=== PATIENT | male | born 2000 | race Caucasian/White ===

== ENCOUNTER 2022-09-10 23:34 | Inpatient (IN) | payer OTHER, SELFPAY ==
[2022-09-11] MEDS ORDERED: Ondansetron PF 4 MG/2 ML Vial IVP PRN (00:21)
[2022-09-11] MEDS ORDERED: Morphine 2 MG/ML VIAL SLOW IVP PRN (00:21)
[2022-09-11] MEDS ORDERED: traMADol HCl 50 MG TAB PO PRN (00:24)
[2022-09-11 00:54] LABS: Mean Corpuscular HGB CONC 32.5 g/dL (32.0-36.0); Mean Corpuscular Volume 95.5 fL (78.0-98.0); Mean Platelet Volume 8.5 fL (7.4-10.4); Platelet Count 222 thou/uL (130-400); RBC Distribution Width 11.3 % (11.5-14.5); Red Blood Cell (RBC) Count 4.84 mill/uL (4.00-5.20); White Blood Cell (WBC) Count 23.8 thou/uL (4.8-10.8)
[2022-09-11] MEDS ORDERED: Lidocaine 1% PF 5 ML VIAL ONE (00:56)
[2022-09-11] MEDS ORDERED: TETANUS, DIPHTHERIA TOX,ADULT (TDVAX) 0.5 ML VIAL IM ONE (01:00)
[2022-09-11 01:16] LABS: Anion Gap 16 mmol/L (10-20); BUN (Urea Nitrogen) 15 mg/dL (8.9-20.6); Calc. Creatinine Clearance 0 mL/min (70-130); Carbon Dioxide 20 mmol/L (22-29); Chloride 109 mmol/L (98-107); Potassium 4.3 mmol/L (3.5-5.1); Sodium 141 mmol/L (136-145)
[2022-09-11 01:17] LABS: ALT (SGPT) 20 U/L (8-55); AST (SGOT) 20 U/L (5-34); Albumin 4.4 g/dL (3.5-5.0); Alkaline Phosphatase 80 U/L (50-130); Bilirubin, Total 0.3 mg/dL (0.2-1.2); Calcium 9.1 mg/dL (7.8-10.44); Estimated GFR 87; Globulin 2.7 g/dL (2.4-3.5); Glucose 108 mg/dL (70-105); Protein, Total 7.1 g/dL (6.0-8.3)
[2022-09-11 01:36] LABS: Band 4 % (5-11); Eosinophils 1 % (0-10); Lymphocytes 5 % (28-48); MDiff Complete? YES; Monocytes 9 % (0-4); Myelocyte 1 % (0-0); Neutrophil 80 % (31-61)
[2022-09-11] MEDS ORDERED: Ondansetron PF 4 MG/2 ML Vial ONE (02:14)
[2022-09-11] MEDS ORDERED: Morphine 4 MG/ML VIAL ONE (02:14)
[2022-09-11] MEDS: Ibuprofen 600 MG TAB PO PRN ×2 (04:00→20:36)
[2022-09-11 04:22] VITALS: BMI 21.4
[2022-09-11] MEDS: Acetaminophen 500 MG TAB PO SCH ×3 (05:44→18:11)
[2022-09-11] MEDS: traMADol HCl 50 MG TAB PO SCH ×3 (05:45→18:15)
[2022-09-11 06:17] LABS: SARS-CoV-2 NAA Rapid Test Not Detected (NotDetected)
[2022-09-11 06:38] LABS: #Lymphocytes 1.1 thou/uL (1.20-3.40); #Monocytes 1.1 thou/uL (0.11-0.59); #Neutrophils 14.4 thou/uL (1.40-6.50); %Basophils 0.1 % (0.0-1.0); %Eosinophils 0.3 % (0.0-10.0); %Lymphocytes 6.4 % (28.0-48.0); %Monocytes 6.4 % (0.0-4.0); %Neutrophils 86.7 % (31.0-61.0); Hemoglobin 14.1 g/dL (14.0-18.0); Mean Corpuscular HGB CONC 32.6 g/dL (32.0-36.0); Mean Corpuscular Volume 95.2 fL (78.0-98.0); Mean Platelet Volume 8.8 fL (7.4-10.4); Platelet Count 235 thou/uL (130-400); RBC Distribution Width 11.2 % (11.5-14.5); Red Blood Cell (RBC) Count 4.55 mill/uL (4.00-5.20); White Blood Cell (WBC) Count 16.6 thou/uL (4.8-10.8)
[2022-09-11 06:58] LABS: Anion Gap 13 mmol/L (10-20); BUN (Urea Nitrogen) 12 mg/dL (8.9-20.6); Calc. Creatinine Clearance 109 mL/min (70-130); Calcium 9.1 mg/dL (7.8-10.44); Carbon Dioxide 24 mmol/L (22-29); Chloride 106 mmol/L (98-107); Estimated GFR 102; Glucose 109 mg/dL (70-105); Magnesium 1.9 mg/dL (1.7-2.2); Phosphorus 4.6 mg/dL (2.3-4.7); Potassium 4.6 mmol/L (3.5-5.1); Sodium 138 mmol/L (136-145)
[2022-09-11] MEDS: Famotidine/PF 20 mg/2ml Vial SLOW IVP SCH ×2 (09:15→20:34)
[2022-09-11] MEDS: Senokot S 8.6-50 MG TAB PO SCH ×2 (09:16→20:35)
[2022-09-11] MEDS: Polyethylene Glycol 3350 17 GM Packet PO SCH (09:16)
[2022-09-12] MEDS: Acetaminophen 500 MG TAB PO SCH ×5 (00:01→23:01)
[2022-09-12] MEDS: traMADol HCl 50 MG TAB PO SCH ×5 (00:22→23:01)
[2022-09-12] MEDS: Enoxaparin Sodium 40 MG/0.4 ML SYRINGE SC SCH (09:50)
[2022-09-12] MEDS: Senokot S 8.6-50 MG TAB PO SCH ×2 (10:24→20:12)
[2022-09-12] MEDS: Polyethylene Glycol 3350 17 GM Packet PO SCH (10:24)
[2022-09-13] MEDS: traMADol HCl 50 MG TAB PO SCH ×4 (05:16→23:30)
[2022-09-13] MEDS: Acetaminophen 500 MG TAB PO SCH ×4 (05:16→23:30)
[2022-09-13] MEDS: Enoxaparin Sodium 40 MG/0.4 ML SYRINGE SC SCH (08:57)
[2022-09-13] MEDS: Polyethylene Glycol 3350 17 GM Packet PO SCH (08:57)
[2022-09-13] MEDS: Senokot S 8.6-50 MG TAB PO SCH ×2 (08:57→20:03)
[2022-09-14] MEDS: Acetaminophen 500 MG TAB PO SCH ×4 (05:44→23:49)
[2022-09-14] MEDS: traMADol HCl 50 MG TAB PO SCH ×4 (05:44→23:49)
[2022-09-14 06:14] LABS: #Eosinphils 0.3 thou/uL (0.0-0.7); #Lymphocytes 1.6 thou/uL (1.20-3.40); #Monocytes 0.9 thou/uL (0.11-0.59); #Neutrophils 6.4 thou/uL (1.40-6.50); %Basophils 0.4 % (0.0-1.0); %Eosinophils 3.7 % (0.0-10.0); %Lymphocytes 17.4 % (28.0-48.0); %Monocytes 9.2 % (0.0-4.0); %Neutrophils 69.4 % (31.0-61.0); Hemoglobin 15.2 g/dL (14.0-18.0); Mean Corpuscular HGB CONC 32.2 g/dL (32.0-36.0); Mean Corpuscular Hemoglobin 30.8 pg (25.0-35.0); Mean Corpuscular Volume 95.7 fL (78.0-98.0); Mean Platelet Volume 7.9 fL (7.4-10.4); Platelet Count 255 thou/uL (130-400); RBC Distribution Width 11.4 % (11.5-14.5); Red Blood Cell (RBC) Count 4.95 mill/uL (4.00-5.20); White Blood Cell (WBC) Count 9.3 thou/uL (4.8-10.8)
[2022-09-14] MEDS ORDERED: FLU VACC QS2022-23(6MOS UP)/PF 60 MCG/0.5 ML SYRINGE IM ONE (09:00)
[2022-09-14] MEDS: Enoxaparin Sodium 40 MG/0.4 ML SYRINGE SC SCH (09:43)
[2022-09-14] MEDS: Polyethylene Glycol 3350 17 GM Packet PO SCH (09:43)
[2022-09-14] MEDS: Senokot S 8.6-50 MG TAB PO SCH ×2 (09:43→20:20)
[2022-09-15] MEDS: Acetaminophen 500 MG TAB PO SCH ×2 (05:50→12:18)
[2022-09-15] MEDS: traMADol HCl 50 MG TAB PO SCH ×2 (05:50→12:18)
[2022-09-15] MEDS: Enoxaparin Sodium 40 MG/0.4 ML SYRINGE SC SCH (10:19)
[2022-09-15] MEDS: Polyethylene Glycol 3350 17 GM Packet PO SCH (10:19)
[2022-09-15] MEDS: Senokot S 8.6-50 MG TAB PO SCH ×2 (10:19→19:34)
[2022-09-15] MEDS ORDERED: Midazolam HCl 2 mg/2 ml Vial ONE (13:19)
[2022-09-15] MEDS ORDERED: fentaNYL Citrate/PF 100 MCG/2 ML SYRINGE ONE (13:19)
[2022-09-15] MEDS ORDERED: Bupivacaine 0.25% HCL 30 ML VIAL ONE (13:28)
[2022-09-15] MEDS ORDERED: Sodium Chloride 0.9% 100 ML ONE (13:48)
[2022-09-15] MEDS ORDERED: CEFAZOLIN 2 GM VIAL ONE (13:48)
[2022-09-15] MEDS ORDERED: PROPOFOL 200 MG/20 ML VIAL ONE (14:02)
[2022-09-15] MEDS ORDERED: Ondansetron PF 4 MG/2 ML Vial ONE (14:02)
[2022-09-15] MEDS ORDERED: Ketorolac Tromethamine 30 MG/ML VIAL ONE (14:02)
[2022-09-15] MEDS ORDERED: NEOSTIGMINE 3 MG/3 ML SYR 3 MG/3 ML SYRINGE ONE (14:02)
[2022-09-15] MEDS ORDERED: Rocuronium Bromide 10 MG/ML (10ML VIAL) ONE (14:02)
[2022-09-15] MEDS ORDERED: PHENYLEPHRINE-NS 100 MCG/ML 10 ML SYRINGE ONE (14:02)
[2022-09-15] MEDS ORDERED: Glycopyrrolate 0.2 MG/ML 5 ML SYRINGE ONE (14:02)
[2022-09-15] MEDS ORDERED: SUGAMMADEX SODIUM 200 MG/2 ML VIAL ONE (14:55)
[2022-09-15] MEDS ORDERED: Fentanyl 100 MCG/2 ML VIAL SLOW IVP PRN (15:16)
[2022-09-15] MEDS ORDERED: Promethazine HCl 6.25 MG in Sodium Chloride 0.9% 50 ML IVPB PRN (15:16)
[2022-09-15] MEDS ORDERED: HYDROcodone/Acetaminophen 5/325 mg Tablet PO PRN ×3 (15:27→15:42)
[2022-09-15] MEDS: HYDROcodone/Acetaminophen 5/325 mg Tablet PO PRN ×2 (16:38→23:19)
[2022-09-15] MEDS: Ketorolac Tromethamine 30 MG/ML VIAL IVP SCH ×2 (17:53→23:20)
[2022-09-16] MEDS: Ketorolac Tromethamine 30 MG/ML VIAL IVP SCH ×2 (05:30→11:20)
[2022-09-16] MEDS: HYDROcodone/Acetaminophen 5/325 mg Tablet PO PRN (05:31)
[2022-09-16 08:08] VITALS: TEMP 97.9
[2022-09-16] MEDS: Enoxaparin Sodium 40 MG/0.4 ML SYRINGE SC SCH (09:18)
[2022-09-16] MEDS: Senokot S 8.6-50 MG TAB PO SCH (09:19)
[2022-09-16] MEDS: Polyethylene Glycol 3350 17 GM Packet PO SCH (09:19)
[2022-09-16 16:06] VITALS: BP 118/68
== END 2022-09-16 16:04 | disposition home or self-care (01) | DRG 164 ==
LOC: ERS 23:34 → SURG A 09-11 00:24 → OBSVTOIN 09-11 00:45
PROVIDERS: ADMIT Thoracic Surgery (Cardiothoracic Vascular Surgery); ATTEND Surgery
PROC: 0BQL4ZZ Repair Left Lung, Percutaneous Endoscopic Approach (ICD-10-PCS; principal; 2022-09-15)
PROC: 0B5P4ZZ Destruction of Left Pleura, Percutaneous Endoscopic Approach (ICD-10-PCS; 2022-09-15)
PROC: 0W9B40Z Drainage of Left Pleural Cavity with Drainage Device, Percutaneous Endoscopic Approach (ICD-10-PCS; 2022-09-15)
PROC: 0W9B30Z Drainage of Left Pleural Cavity with Drainage Device, Percutaneous Approach (ICD-10-PCS; 2022-09-15)
DX: J93.83 Other pneumothorax (principal); J98.19 Other pulmonary collapse; J43.9 Emphysema, unspecified; J93.82 Other air leak; Z20.822 Contact with and (suspected) exposure to COVID-19
CPT/HCPCS: 36415; 71045; 71250; 80053; 83735; 84100; 84484; 85025; 88305; 93005; 96374; 96375; J0690; J1650; J1885; J2250; J2270; J2405; J2704; J3490; S0020; S0028; U0002